=== PATIENT | female | born 2000 | race Caucasian/White ===

== ENCOUNTER 2024-04-05 11:49 | Outpatient (CLI) | payer OTHER, SELFPAY | END 2024-04-05 11:50 | disposition home or self-care (01) | PROVIDERS: PCP Family Medicine; Visit Provider Family Medicine | DX: I42.9 Cardiomyopathy, unspecified (principal) | CPT/HCPCS: 80048; 80061; 85025 ==

== ENCOUNTER 2024-04-06 08:55 | Outpatient (CLI) | payer OTHER, SELFPAY | END 2024-04-06 08:56 | disposition home or self-care (01) | PROVIDERS: PCP Family Medicine; Visit Provider Family Medicine | DX: I42.9 Cardiomyopathy, unspecified (principal); Z15.89 Genetic susceptibility to other disease; Z82.49 Family history of ischemic heart disease and other diseases of the circulatory system | CPT/HCPCS: 81403; 81404; 81405; 81406; 81407; 81408; 81414; 81439; 81479 ==

== ENCOUNTER 2024-04-15 08:53 | Outpatient (CLI) | payer OTHER, SELFPAY ==
[2024-04-15] MEDS: PERFLUTREN LIPID MICROSPHERES 2 ML VIAL IVP (09:43)
== END 2024-04-15 08:54 | disposition home or self-care (01) ==
PROVIDERS: PCP Family Medicine; Visit Provider Family Medicine
DX: I42.9 Cardiomyopathy, unspecified (principal)
CPT/HCPCS: 93306; Q9957

== ENCOUNTER 2024-09-23 13:13 | Outpatient (CLI) | payer BC, SELFPAY ==
[2024-09-23 18:32] LABS: Bacterial Vaginosis* POSITIVE (Negative); Candida glab/krus NOT DETECTED (No Detected)
[2024-09-23 19:03] LABS: Chlamydia DNA Amplified* NOT DETECTED (No Detected); GC DNA Amplified* NOT DETECTED (No Detected)
[2024-09-28 00:47] LABS: HPV Source Cervix
[2024-09-29 15:15] LABS: Pap Test Digital Imaging Done
== END 2024-09-23 13:14 | disposition home or self-care (01) ==
PROVIDERS: PCP Family Medicine; Visit Provider Registered Nurse
DX: N76.0 Acute vaginitis (principal); B96.89 Other specified bacterial agents as the cause of diseases classified elsewhere; Z12.4 Encounter for screening for malignant neoplasm of cervix; Z11.3 Encounter for screening for infections with a predominantly sexual mode of transmission; Z11.51 Encounter for screening for human papillomavirus (HPV)
CPT/HCPCS: 81513; 87481; 87491; 87591; 87624; 87625; 87661; 88141; 88142; 88175